=== PATIENT | male | born 1970 | race Caucasian/White ===

== ENCOUNTER 2020-02-24 08:43 | Emergency (ER) | payer OTHER ==
[~2020-02-24] VITALS: Ht 198.1 cm; Wt 70.3 kg
[~2020-02-24 08:43] MED LIST: ADDERALL 10 MG10 MG; ADDERALL 5 MG TA5 M1 PO; CELEXA20 MG PO; RISPERDAL0.5 MG; RISPERDAL4 M1 PO; VALIUM5 MG
[2020-02-24 08:47] VITALS: BP 130/108
[2020-02-24] MEDS ORDERED: AMPHETAMINE SAL30 MG PO (09:09)
== END 2020-02-24 09:22 | disposition home or self-care (01) ==
LOC: ER 08:43
DX: R25.2 Cramp and spasm (principal); Z20.828 Contact with and (suspected) exposure to other viral communicable diseases; R09.82 Postnasal drip; G47.9 Sleep disorder, unspecified; F32.9 Major depressive disorder, single episode, unspecified; F41.9 Anxiety disorder, unspecified; F90.9 Attention-deficit hyperactivity disorder, unspecified type; F17.210 Nicotine dependence, cigarettes, uncomplicated; Z79.899 Other long term (current) drug therapy

== ENCOUNTER 2020-07-11 13:42 | Emergency (ER) | payer OTHER ==
[~2020-07-11] VITALS: Ht 198.1 cm; Wt 72.6 kg
[~2020-07-11 13:42] MED LIST changes: +AMPHETAMINE SAL30 MG PO
[2020-07-11 13:58] VITALS: BP 104/72
== END 2020-07-11 14:50 | disposition home or self-care (01) ==
LOC: ER 13:42
DX: B07.0 Plantar wart (principal); F17.210 Nicotine dependence, cigarettes, uncomplicated; Z79.899 Other long term (current) drug therapy